=== PATIENT | female | born 1960 | race Caucasian/White ===

== ENCOUNTER → 2021-08-29 | Emergency (ER) | payer MEDICARE ==
[~2021-08-29] VITALS: Ht 157.5 cm; Wt 67.7 kg
[~2021-08-29] MED LIST: DURAGESIC1 EACH TD; FENTANYL1 EACH TD; HYDROMORPHONE HC4 MG PO; IRON325 M1 PO; MIRALAX17 GM PO; MULTI VITAMIN1 EACH PO; NEURONTIN600 MG PO; NICOTINE PATCH1 EACH TD; NORCO 10-325 T1 EACH PO; OXYCODONE HCL10 MG PO; OXYCODONE HCL5 MG PO; OXYCODONE-ACET1 EAC1 PO; PAMELOR25 MG PO; PLAQUENIL200 MG PO; PRILOSEC20 MG PO; PROMETHAZINE HC25 M1 PO; TRAMADOL HCL50 MG PO; TRULICITY0.75 MG/0. SQ; VITAMIN C500 M1 PO; XARELTO10 MG PO; ZOFRAN ODT4 MG PO
--- NOTE | 2021-08-29 17:42 | EKG ---
[facility] [address] [facility] [place] [address] Signed Sinus rhythm with premature atrial complexes with aberrant conduction Low voltage QRS Nonspecific ST abnormality Abnormal ECG When compared with ECG of 22-JUL-2021 09:35, aberrant conduction is now present Criteria for Anterior infarct are no longer present Criteria for Inferior infarct are no longer present Confirmed by ALAINA NELSON DO ([id number]) on 08/29/2021 5:42:23 PM Electronically Signed By: ALAINA NELSON DO 08/29/21 1742 PATIENT NAME: JORDY DELGADO Electrocardiogram DATE OF : 60 PHYSICIAN: ALAINA NELSON DO REPORT #: [id number] REPORT IS CONFIDENTIAL AND NOT TO BE RELEASED WITHOUT AUTHORIZATION
--- NOTE | 2021-08-29 17:42 | EKG ---
[facility] [address] [facility] [place] [address] Signed Atrial fibrillation with premature ventricular or aberrantly conducted complexes ST elevation, consider inferior injury or acute infarct Prolonged QT ACUTE AR / STEMI Consider right ventricular involvement in acute inferior infarct Abnormal ECG No previous ECGs available Confirmed by ALAINA NELSON DO ([id number]) on 08/29/2021 5:42:27 PM Electronically Signed By: ALAINA NELSON DO 08/29/21 1742 PATIENT NAME: JORDY DELGADO Electrocardiogram DATE OF : 60 PHYSICIAN: ALAINA NELSON DO REPORT #: [id number] REPORT IS CONFIDENTIAL AND NOT TO BE RELEASED WITHOUT AUTHORIZATION
== END ==
LOC: ED 07:11
DX: A41.9 Sepsis, unspecified organism (principal); R65.21 Severe sepsis with septic shock; N17.9 Acute kidney failure, unspecified; M06.9 Rheumatoid arthritis, unspecified; F17.200 Nicotine dependence, unspecified, uncomplicated; Z88.2 Allergy status to sulfonamides; Z88.0 Allergy status to penicillin; Z79.899 Other long term (current) drug therapy; Z88.8 Allergy status to other drugs, medicaments and biological substances; Z20.822 Contact with and (suspected) exposure to COVID-19
CPT/HCPCS: 36415; 36600; 71045; 80053; 81001; 82803; 83605; 84484; 85025; 93005; 93010; C1894; C9803; J0692; J3370; J7030; J7060; J7070; J7121; U0003

== ENCOUNTER 2021-11-11 05:21 | Emergency (ER) | payer MEDICARE ==
[~2021-11-11] VITALS: Ht 157.5 cm; Wt 66.0 kg
[2021-11-11] MEDS ORDERED: LANTUS100 UNITS/ SUB-Q (13:36)
[2021-11-11] MEDS ORDERED: INSULIN SYRING1 EA29 MISC (13:36)
--- NOTE | 2021-11-11 15:18 | EKG ---
[facility] [address] [facility] [place] [address] Signed Sinus tachycardia with fusion complexes Low voltage QRS Borderline ECG When compared with ECG of 29-AUG-2021 08:21, fusion complexes are now present aberrant conduction is no longer present Confirmed by JEAN-CLAUDE PENNINGTON MD ([id number]) on 11/11/2021 3:18:31 PM Electronically Signed By: JEAN-CLAUDE PENNINGTON MD 11/11/21 1518 PATIENT NAME: JORDY DELGADO Electrocardiogram DATE OF : 60 PHYSICIAN: JEAN-CLAUDE PENNINGTON MD REPORT #: [id number] REPORT IS CONFIDENTIAL AND NOT TO BE RELEASED WITHOUT AUTHORIZATION
== END 2021-11-12 12:25 | disposition home or self-care (01) ==
LOC: ED 05:21
DX: M79.604 Pain in right leg (principal); M79.605 Pain in left leg; R53.1 Weakness; F17.200 Nicotine dependence, unspecified, uncomplicated; Z88.0 Allergy status to penicillin; Z88.2 Allergy status to sulfonamides; Z88.1 Allergy status to other antibiotic agents; Z79.899 Other long term (current) drug therapy; Z79.4 Long term (current) use of insulin; Z20.822 Contact with and (suspected) exposure to COVID-19
CPT/HCPCS: 36415; 71045; 80053; 81001; 83735; 84484; 85025; 87502; 93005; 93010; 96361; 96374; 97161; 99285-25; A9270; J2405; J7030; U0003